=== PATIENT | male | born 1965 | race Caucasian/White ===

== ENCOUNTER 2020-12-07 19:45 | Emergency (ER) | payer OTHER ==
[~2020-12-07] VITALS: Ht 180.3 cm; Wt 79.4 kg
[2020-12-07 21:01] LABS: BASOPHILS ABSOLUTE AUTO 0.03 K/mm3 (0.00-0.23); BASOPHILS PERCENT AUTO 0 % (0-2); EOSINOPHILS ABSOLUTE AUTO 0.02 K/mm3 (0.00-0.68); EOSINOPHILS PERCENT AUTO 0 % (0-6); Hematocrit 45.4 % (37.0-53.0); IMMATURE GRAN ABSOLUTE AUTO 0.07 K/mm3 (0.00-0.10); IMMATURE GRAN PERCENT AUTO 1 % (0-1); LYMPHOCYTES ABSOLUTE AUTO 0.78 K/mm3 (0.84-5.20); LYMPHOCYTES PERCENT AUTO 5 % (21-46); MONOCYTES ABSOLUTE AUTO 0.82 K/mm3 (0.16-1.47); MONOCYTES PERCENT AUTO 6 % (4-13); Mean Corpuscular HGB 31.9 pg (26.0-34.0); Mean Corpuscular HGB Conc 35.2 g/dL (31.5-36.5); Mean Corpuscular Volume 90 fL (80-100); Mean Platelet Volume 9.2 fL (9.1-12.4); NEUTROPHILS ABSOLUTE AUTO 12.79 K/mm3 (1.96-9.15); NEUTROPHILS PERCENT AUTO 88 % (41-73); Platelet Count 315 K/mm3 (150-400); RDW Coefficient Variation 12.5 % (11.7-14.2); Red Blood Cell Count 5.02 M/mm3 (4.30-5.90); White Blood Cell Count 14.51 K/mm3 (4.00-11.30)
[2020-12-07 21:17] LABS: Alanine Aminotransfer (ALT/SGP 35 U/L (12-78); Albumin, Blood 4.5 g/dL (3.4-5.0); Albumin/Globulin Ratio 1.2 (0.8-1.8); Alk Phos 92 U/L (50-136); Anion Gap 8 mmol/L (6-16); Aspartate Aminotrans (AST/SGOT 20 U/L (12-37); Bilirubin, Total 0.9 mg/dL (0.1-1.0); Blood Urea Nitrogen 21 mg/dL (8-24); Bun/Creatinine Ratio 16.9 (12.0-20.0); CO2, Blood 25 mmol/L (21-32); Calcium, Blood 9.7 mg/dL (8.5-10.1); Chloride, Blood 107 mmol/L (98-108); Creatinine, Blood 1.24 mg/dL (0.60-1.20); Globulin, Blood 3.9 g/dL (2.2-4.0); Glomerular Filtration Rate >60 (60-); Glucose, Blood 145 mg/dL (70-99); Potassium, Blood 3.9 mmol/L (3.5-5.5); Sodium, Blood 140 mmol/L (136-145); Total Protein, Blood 8.4 g/dL (6.4-8.2); Troponin I <0.015 ng/mL (0.000-0.040)
== END 2020-12-07 21:39 | disposition left against medical advice (07) ==
LOC: ER 19:45
PROVIDERS: Physician Assistant
DX: M54.6 Pain in thoracic spine (principal); R11.10 Vomiting, unspecified; R10.9 Unspecified abdominal pain; Z53.20 Procedure and treatment not carried out because of patient's decision for unspecified reasons
CPT/HCPCS: 36415; 80053; 83690; 84484; 85025; 93005; 93010; 99283-25

== ENCOUNTER 2024-07-17 09:51 | Day surgery (SDC) | payer OTHER ==
[~2024-07-17] VITALS: Ht 180.3 cm; Wt 91.2 kg
[2024-07-17] VITALS (23 sets, daily range): BP systolic 97–136; BP diastolic 47–90
[~2024-07-17 09:51] MED LIST: LISI20 PO; OMEP20ER PO; Ropivacaine 0.5% HCL/PF 5 MG/ML 30ML Vial ONE; propofoL 50 ML IV ONE
[2024-07-17] MEDS ORDERED: CeFAZolin Sodium 2,000 MG in NS 100 ML IV SCH (10:05)
[2024-07-17] MEDS ORDERED: Lactated Ringer's 1,000 ML IV SCH (10:05)
[2024-07-17] MEDS ORDERED: Tranexamic Acid 100 ML IV SCH (10:10)
[2024-07-17] MEDS ORDERED: Acetaminophen 500 MG Tab PO ONE (10:15)
[2024-07-17] MEDS ORDERED: FentaNYL Citrate 50 MCG/ML 2 ML Injection IV PRN ×2 (10:15→10:20)
[2024-07-17] MEDS ORDERED: ePHEDrine Sulfate 50 MG/ML 1ML Injection IV PRN (10:15)
[2024-07-17] MEDS ORDERED: Lidocaine HCl 1% 5 ML SYR INJ ONE (10:15)
[2024-07-17] MEDS ORDERED: DiphenhydrAMINE HCl 50 MG/ML 1ML Vial IV PRN (10:15)
[2024-07-17] MEDS ORDERED: Ondansetron HCl 2 MG / ML 2ML Vial ONE (10:16)
[2024-07-17] MEDS ORDERED: HYDROmorphone HCl/Pf 1MG SYR ONE (10:16)
[2024-07-17] MEDS ORDERED: Metoclopramide HCl 5MG / ML 2ML Vial ONE (10:16)
[2024-07-17] MEDS ORDERED: Dexamethasone Sod Phos 10 MG/ML 1ML VIAL ONE (10:16)
[2024-07-17] MEDS ORDERED: Ketorolac Tromethamine 30mg Vial ONE (10:16)
[2024-07-17] MEDS ORDERED: EpiNEPhrine 1 MG/1 ML 1ML Vial ONE (10:17)
[2024-07-17] MEDS ORDERED: HYDROmorphone HCl/Pf 1MG SYR IV PRN ×2 (10:20)
[2024-07-17] MEDS ORDERED: Ondansetron HCl 2 MG / ML 2ML Vial IV PRN (10:20)
[2024-07-17] MEDS ORDERED: Albuterol 2.5 MG/3 ML VIAL INH PRN (10:20)
[2024-07-17] MEDS ORDERED: CeFAZolin Sodium 2,000 MG VIAL ONE (10:32)
[2024-07-17] MEDS ORDERED: propofoL 20 ML IV ONE ×2 (10:55→14:10)
--- NOTE | 2024-07-17 11:03 | NUR ---
History, Chart, Medications and Allergies reviewed before start of procedure. Patient confirms NPO status and agrees with scheduled surgery. Patient States Post-Procedure ride home has been arranged with his parents, who are at bedside in Day Surgery.
--- NOTE | 2024-07-17 11:58 | NUR ---
TIME OUT FOR PERIPHERAL NERVE BLOCK BY DR JOSE TO RIGHT SHOULDER. CONTINUOUS PULSE OXIMETRY INTACT.
--- NOTE | 2024-07-17 11:59 | NUR ---
PERIPHERAL NERVE BLOCK START TIME: 1159 STOP: 1205.
[2024-07-17] MEDS ORDERED: EPINEPhrine HCl 1 MG / ML 30ML Vial ONE (12:08)
[2024-07-17] MEDS ORDERED: Phenylephrine HCl 100 MCG/ML-NS 10MLSYR (1MG/10ML) ONE (12:35)
[2024-07-17] MEDS ORDERED: DiphenhydrAMINE HCl 50 MG/ML 1ML Vial ONE (16:33)
--- NOTE | 2024-07-17 16:37 | NUR ---
DR. JOSE AT BEDSIDE, ADMINISTERED 10MG BENADRYL IVP. PT STS NAUSEA HAS IMPROVED SLIGHTLY BUT NOT RESOLVED.
[2024-07-17] MEDS ORDERED: Droperidol 5 mg/2 ml Vial IV ONE (16:50)
[2024-07-17] MEDS ORDERED: Scopolamine Hydrobromide Patch TOP ONE (17:20)
--- NOTE | 2024-07-17 17:47 | NUR ---
PT CONTINUES TO BE NAUSEATED, BUT VERBALIZES DESIRE TO DISCHARGE HOME. RN ASSISTED WITH DRESSING, AND REPLACEMENT OF DONJOY SLING. Discharge instructions reviewed with patient. Patient verbalizes understanding. Copy given to patient to take home. EDUCATION PROVIDED REGARDING POLAR PACK WELL. Discharged via wheelchair to private car for ride home.
== END 2024-07-17 17:54 | disposition home or self-care (01) ==
LOC: ORSCMMR 09:51 → ORD 12:45 → ORSCMMR 17:54
DX: M75.111 Incomplete rotator cuff tear or rupture of right shoulder, not specified as traumatic (principal); S43.431A Superior glenoid labrum lesion of right shoulder, initial encounter; M75.21 Bicipital tendinitis, right shoulder; M75.41 Impingement syndrome of right shoulder; I10 Essential (primary) hypertension; K21.9 Gastro-esophageal reflux disease without esophagitis; Z79.899 Other long term (current) drug therapy
CPT/HCPCS: A9270; C1713; J0171; J0690; J1100; J1171; J1200; J1790; J1885; J2371; J2405; J2704; J2765; J2795; J7120

== ENCOUNTER 2024-07-21 12:27 | Emergency (ER) | payer OTHER ==
[~2024-07-21] VITALS: Ht 180.3 cm; Wt 99.8 kg
[~2024-07-21 12:27] MED LIST changes: -Ropivacaine 0.5% HCL/PF 5 MG/ML 30ML Vial ONE; -propofoL 50 ML IV ONE
[2024-07-21 12:43] VITALS: BP 154/102
[2024-07-21 13:23] LABS: BASOPHILS ABSOLUTE AUTO 0.05 K/mm3 (0.00-0.23); BASOPHILS PERCENT AUTO 1 % (0-2); EOSINOPHILS ABSOLUTE AUTO 0.06 K/mm3 (0.00-0.68); EOSINOPHILS PERCENT AUTO 1 % (0-6); Hematocrit 40.8 % (37.0-53.0); Hemoglobin 14.2 g/dL (13.5-17.5); IMMATURE GRAN ABSOLUTE AUTO 0.02 K/mm3 (0.00-0.10); IMMATURE GRAN PERCENT AUTO 0 % (0-1); LYMPHOCYTES ABSOLUTE AUTO 1.14 K/mm3 (0.84-5.20); LYMPHOCYTES PERCENT AUTO 19 % (21-46); MONOCYTES ABSOLUTE AUTO 0.45 K/mm3 (0.16-1.47); MONOCYTES PERCENT AUTO 8 % (4-13); Mean Corpuscular HGB 29.7 pg (26.0-34.0); Mean Corpuscular HGB Conc 34.8 g/dL (31.5-36.5); Mean Corpuscular Volume 85 fL (80-100); Mean Platelet Volume 8.8 fL (9.1-12.4); NEUTROPHILS ABSOLUTE AUTO 4.23 K/mm3 (1.96-9.15); NEUTROPHILS PERCENT AUTO 71 % (41-73); Platelet Count 275 K/mm3 (150-400); RDW Coefficient Variation 13.2 % (11.7-14.2); RDW Standard Deviation 41.3 fL (35.1-46.3); Red Blood Cell Count 4.78 M/mm3 (4.30-5.90); White Blood Cell Count 5.95 K/mm3 (4.00-11.30)
[2024-07-21 13:40] LABS: Albumin, Blood 3.6 g/dL (3.4-5.0); Albumin/Globulin Ratio 0.9 (0.8-1.8); Bilirubin, Total 0.3 mg/dL (0.1-1.0); Bun/Creatinine Ratio 26.7 (12.0-20.0); Calcium, Blood 8.9 mg/dL (8.5-10.1); Creatinine, Blood 1.01 mg/dL (0.60-1.20); Globulin, Blood 4.1 g/dL (2.2-4.0); Potassium, Blood 3.9 mmol/L (3.5-5.5); Total Protein, Blood 7.7 g/dL (6.4-8.2)
== END 2024-07-21 14:52 | disposition home or self-care (01) ==
LOC: ER 12:27
PROVIDERS: Physician Assistant
DX: R22.31 Localized swelling, mass and lump, right upper limb (principal); Z48.89 Encounter for other specified surgical aftercare
CPT/HCPCS: 80053; 85025; 93971; 99284-25